=== PATIENT | male | born 1970 | race Caucasian/White ===

== ENCOUNTER 2018-08-07 21:49 | Emergency (ER) | payer OTHER ==
[2018-08-07] MEDS ORDERED: Iohexol 240 (50 ml) PO ONE (22:55)
[2018-08-07] MEDS ORDERED: Sodium Chloride 0.9% 1,000 ML IV STA (22:56)
--- NOTE | 2018-08-07 23:00 | ED PDOC ---
HPI: Abdomen Time Seen by Provider: 08/07/18 22:38 Chief Complaint (Nursing): Abdominal Pain Chief Complaint (Provider): abdominal pain History Per: Patient History/Exam Limitations: no limitations Onset/Duration Of Symptoms: Days (2) Current Symptoms Are (Timing): Still Present Location Of Pain/Discomfort: RLQ Quality Of Discomfort: "Pain" Additional Complaint(s): 47 y/o male presents for evaluation of abdominal pain x 2 days. Associated diarrhea, and chills. Patient also reports pain in right testicle and groin "for a while" but states it worsened last night when the rest of his other symptoms presented. Denies headache, vomiting, chest pain, shortness of breath, palpitations, urinary symptoms, penile pain/discharge. Past Medical History Reviewed: Historical Data, Nursing Documentation, Vital Signs Vital Signs: Last Vital Signs Temp 100.0 F H 08/07/18 22:33 Pulse 82 08/07/18 22:33 Resp 18 08/07/18 22:33 BP 138/75 08/07/18 22:33 Pulse Ox 97 08/07/18 22:33 - Medical History PMH: No Chronic Diseases - Surgical History Surgical History: No Surg Hx - Family History Family History: States: No Known Family Hx - Home Medications Home Medications: Ambulatory Orders Medication Instructions Recorded Acetaminophen/Hydrocodone Bi 1 tab PO Q6 PRN #12 tab 10/19/13 [Vicodin 300 mg-5 mg] Dexamethasone/Tobramycin [Tobradex 1 drop OP Q4 #1 bot 10/19/13 0.1%-0.3% 10 ml] Dicyclomine [Bentyl] 20 mg PO Q12 PRN #20 tab 12/29/15 Ondansetron ODT [Zofran ODT] 4 mg PO Q6 PRN #16 odt 12/29/15 Dicyclomine [Bentyl] 20 mg PO TID PRN #15 tab 08/08/18 Ibuprofen [Motrin Tab] 1 tab PO Q6 PRN #15 tab 08/08/18 - Allergies Allergies/Adverse Reactions: Allergies Allergy/AdvReac Type Severity Reaction Status Date / Time No Known Allergies Allergy Verified 10/19/13 11:48 Review of Systems ROS Statement: Except As Marked, All Systems Reviewed And Found Negative Constitutional: Positive for: Fever Gastrointestinal: Positive for: Abdominal Pain (right lower/right groin), Diarrh ea Genitourinary Male: Positive for: Scrotal Pain (right) Physical Exam - Reviewed Nursing Documentation Reviewed: Yes Vital Signs Reviewed: Yes - Physical Exam Appears: Positive for: Well, Non-toxic, No Acute Distress Head Exam: Positive for: ATRAUMATIC, NORMAL INSPECTION, NORMOCEPHALIC Skin: Positive for: Normal Color Eye Exam: Positive for: Normal appearance ENT: Positive for: Normal ENT Inspection Cardiovascular/Chest: Positive for: Regular Rate, Rhythm Respiratory: Positive for: Normal Breath Sounds Gastrointestinal/Abdominal: Positive for: Normal Exam, Bowel Sounds, Soft Male Genital Exam: Positive for: inguinal tenderness (right), scrotum tenderness (R), testicular tenderness (R), 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 CLINICAL HISTORY: Fever, right groin pain and diarrhea. TECHNIQUE: Multiple axial and coronal CT images were obtained through the a bdomen and pelvis after administration of intravenous and oral contrast material. COMPARISON: 12/29/2015 01:33 AM EDT: CT\\SD: ABD PELVIS PO IV CONTRAST PAIN (DICOM Hx) COMMENTS: Mild thickening of the proximal small bowels. Uncomplicated colonic diverticulosis. The liver is of uniform attenuation without mass or defect. There is no intra or extrahepatic biliary ductal dilatation. The spleen is normal. The gallbladder is within normal limits. The pancreas is of normal contour and attenuation characteristics. There is no evidence of adrenal mass. Both kidneys demonstrate prompt and equal nephrograms. The kidneys are normal in size, shape and configuration. There is no evidence of renal or ureteral mass. No renal or ureteral calculi are identified. There is no hydroureter or hydronephrosis. No evidence for appendicitis. No evidence for small or large bowel obstruction. There is no evidence of abdominal ascites or lymphadenopathy. There is no evidence of intrinsic or extrinsic bladder mass. There is no pelvic ascites or lymphadenopathy. Images of the lung bases show no evidence of pleural or parenchymal mass. There are no pleural effusions. The bony structures are free of lytic or blastic lesions. IMPRESSION: Mild uncomplicated enteritis Ultrasound of the testicles. Indication: Right testicular pain. Technique: Real-time ultrasound images were obtained. Findings: The right testicle measures 4.1x3.1x2.4 cm. The right epididymis measures 2.7x0.5x2.9 cm. Normal right testicular flow. The left testicle measures 4 x3x2.2 cm. Unremarkable left epididymis measuring 2.4x0.81 x0.6 cm. Impression: Unremarkable exam. Patient educated on findings, discharged with rx ibuprofen, bentyl Advised increase fluid intake, BRAT diet Follow up PMD within 2-3 days Return precautions given Disposition - Clinical Impression Clinical Impression: Gastroenteritis, Right groin pain, Right testicular pain - Patient ED Disposition Is Patient to be Admitted: No Counseled Patient/Family Regarding: Studies Performed, Diagnosis, Need For Followup, Rx Given - Disposition Referrals: [facility] [Outside] Disposition: Routine/Home Disposition Time: 03:15 Condition: IMPROVED Prescriptions: Dicyclomine [Bentyl] 20 mg PO TID PRN #15 tab PRN Reason: Pain, Mild (1-3) Ibuprofen [Motrin Tab] 1 tab PO Q6 PRN #15 tab PRN Reason: Pain, Moderate (4-7) Instructions: Gastroenteritis (ED), Groin Strain
[2018-08-08 00:22] LABS: URINE BILIRUBIN NEGATIVE (NEGATIVE); URINE BLOOD SMALL (NEGATIVE); URINE CLARITY SLIGHTY-CLOUDY (Clear); URINE COLOR YELLOW (YELLOW); URINE GLUCOSE (UA) NEG (NEGATIVE); URINE LEUKOCYTE ESTERASE NEG Leu/uL (Negative); URINE PROTEIN NEGATIVE (NEGATIVE); URINE UROBILINOGEN 0.2-1.0 mg/dL (0.2-1.0)
[2018-08-08] MEDS ORDERED: Iohexol 240 (50 ml) ONE (00:25)
[2018-08-08 00:29] LABS: BASO % 0.1 % (0.0-2.0); EOS # 0.3 K/uL (0.0-0.7); EOS % 4.9 % (0.0-4.0); HEMOGLOBIN 13.9 g/dL (12.0-18.0); LYMPH # 0.7 K/uL (1.0-4.3); LYMPH % 9.9 % (20.0-40.0); MEAN CORPUSCULAR HEMOGLOBIN 31.5 pg (27.0-31.0); MEAN CORPUSCULAR HGB CONC 35.4 g/dL (33.0-37.0); MEAN PLATELET VOLUME 9.3 fl (7.2-11.7); MONO # 0.4 K/uL (0.0-0.8); MONO % 5.6 % (0.0-10.0); NEUT # 5.6 K/uL (1.8-7.0); NEUT % 79.5 % (50.0-75.0); NRBC % 0.2 % (0.0-0.0); PLATELET COUNT 176 K/uL (130-400); RBC 4.41 Mil/uL (4.40-5.90); RED CELL DISTRIBUTION WIDTH 12.9 % (11.5-14.5)
[2018-08-08 00:31] LABS: ALB/GLOB RATIO 1.4 (1.0-2.1); ALBUMIN 4.4 g/dL (3.5-5.0); ALT/SGPT 65 U/L (21-72); AST/SGOT 52 U/L (17-59); BLOOD UREA NITROGEN 19 mg/dl (9-20); CALCIUM 8.7 mg/dL (8.4-10.2); GFR NON-AFRICAN AMERICAN > 60
[2018-08-08 01:09] LABS: EOSINOPHIL 2 % (0-7); LYMPHOCYTE 11 % (20-50); MONOCYTE 6 % (0-10); PLATELET ESTIMATE NORMAL (NORMAL)
[2018-08-08 01:10] LABS: BANDS 2 % (0-2); NEUTROPHIL 79 % (42-75); TOTAL CELLS COUNTED 100
[2018-08-08] MEDS ORDERED: Sodium Chloride 0.9% 50 ML IV ONE (01:45)
[2018-08-08] MEDS ORDERED: Iohexol 300 100 ML IJ ONE (01:45)
[2018-08-08 03:36] VITALS: BP 127/84; PULSE 76; RESP 16; TEMP 99.1; O2SAT 98
--- NOTE | 2018-08-08 11:40 | CT ---
Date of service: 08/08/2018 PROCEDURE: CT Abdomen and Pelvis with contrast HISTORY: fever, right groin pain, diarrhea COMPARISON: 12/29/2015. TECHNIQUE: CT scan of the abdomen and pelvis was performed after administration of intravenous contrast. Oral contrast was administered. Coronal and sagittal reformatted images were obtained. Contrast dose: 90 cc Omnipaque 300 Radiation dose: Total exam DLP = 407.26 mGy-cm. This CT exam was performed using one or more of the following dose reduction techniques: Automated exposure control, adjustment of the mA and/or kV according to patient size, and/or use of iterative reconstruction technique. FINDINGS: LOWER THORAX: There is dependent atelectasis in the lung bases. LIVER: Mild hepatomegaly and fatty liver. Normal homogeneous enhancement. No gross lesion or ductal dilatation. GALLBLADDER AND BILE DUCTS: Well distended. No calcified gallstones, wall thickening or pericholecystic fluid. PANCREAS: Normal in size with homogeneous enhancement. No gross lesion or ductal dilatation. SPLEEN: Normal in size and appearance. ADRENALS: No discrete nodule. KIDNEYS AND URETERS: Normal in size with homogeneous enhancement. No hydronephrosis. No solid mass. VASCULATURE: No aortic aneurysm. There are no aortic atherosclerotic calcifications or mural plaque present. BOWEL: There is mild dilatation of proximal small bowel loops. The mid distal small bowel loops are normal in caliber. The colon is unremarkable. The colon is grossly normal in appearance. No bowel wall thickening or obstruction. APPENDIX: Normal appendix. PERITONEUM: No free fluid. No free air. LYMPH NODES: No enlarged lymph nodes. BLADDER: Well distended and normal in appearance. REPRODUCTIVE: The prostate gland is normal in size. BONES: No acute fracture. Within normal limits for the patient's age. OTHER FINDINGS: None. IMPRESSION: Findings are most compatible with nonspecific acute infectious/inflammatory enteritis involving the proximal small bowel loops. No evidence for bowel obstruction. Mild hepatosplenomegaly and fatty liver. A preliminary report was provided by [employer]
--- NOTE | 2018-08-08 12:19 | US ---
Date of service: 08/07/2018 HISTORY: right testicular pain TECHNIQUE: Realtime sonography through the scrotum with color and doppler flow. COMPARISON: 11/30/2011. FINDINGS: RIGHT TESTICLE: Measures 4.1 x 3.9 x 2.4 cm. Normal homogeneous echotexture and flow. RIGHT EPIDIDYMIS: Epididymal head measures 2.7 x 0.9 x 0.5 cm. Grossly unremarkable appearance with normal flow. LEFT TESTICLE: Measures 4.0 x 3.0 x 2.2 cm. Normal homogeneous echotexture and flow. LEFT EPIDIDYMIS: Epididymal head measures 3.4 x 0.8 x 0.6 cm. Grossly unremarkable appearance with normal flow. HYDROCELE: None. VARICOCELE: None. OTHER FINDINGS: None. IMPRESSION: No evidence for testicular mass, torsion or epididymo-orchitis. A preliminary report was provided by [employer].
== END 2018-08-08 03:36 | disposition home or self-care (01) ==
LOC: H.ER 21:49
DX: R52 Pain, unspecified (principal); N50.811 Right testicular pain; K52.9 Noninfective gastroenteritis and colitis, unspecified
CPT/HCPCS: 74177; 80053; 81003; 83605; 85025; 87040; 87086; 87491; 87591; 87804; 93975; 99283; J1885; J7030; Q9967